=== PATIENT | female | born 1950 | race Caucasian/White ===

== ENCOUNTER 2020-08-19 15:46 | Observation (INO) | payer MEDICARE, OTHER ==
[~2020-08-19] VITALS: Ht 162.6 cm; Wt 95.3 kg
[2020-08-19] MEDS ORDERED: ACETAMINOPHEN 325 MG TAB PO ONE (16:15)
[2020-08-19] MEDS ORDERED: FAMOTIDINE 20 MG/2 ML VIAL IV ONE ×2 (16:15→17:14)
[2020-08-19] MEDS ORDERED: ENALAPRILAT IV INJ 1.25 MG/ML VIAL IV PRN (17:00)
[2020-08-19] MEDS ORDERED: ONDANSETRON HCL INJ 2MG/ML 2ML 2 MG/ML VIAL IV PRN ×2 (17:00)
[2020-08-19] MEDS ORDERED: DIPHENHYDRAMINE HCL INJ 50 MG/ML VIAL IV PRN (17:00)
[2020-08-19] MEDS ORDERED: FAMOTIDINE 20 MG TAB PO SCH (17:00)
[2020-08-19] MEDS ORDERED: SODIUM CHLORIDE FLUSH 10 ML SYR INJ PRN (17:00)
[2020-08-19] MEDS ORDERED: ACETAMINOPHEN 325 MG TAB PO PRN (17:00)
[2020-08-19] MEDS ORDERED: SODIUM CHLORIDE 0.9% 1000ML 1,000 ML IV STA (17:05)
[2020-08-19] MEDS ORDERED: ACETAMINOPHEN 325 MG TAB ONE (17:14)
[2020-08-19] MEDS ORDERED: SODIUM CHLORIDE 0.9% 1000ML 1,000 ML ONE (17:22)
[2020-08-19] MEDS ORDERED: SODIUM CHLORIDE 0.9% 50ML 50 ML ONE ×3 (17:23→23:05)
[2020-08-19] MEDS ORDERED: IOPAMIDOL 370 MG/ML 200 ML INFUS..BTL INJ ONE (17:24)
[2020-08-19] MEDS ORDERED: OMEGA 3 1,0001 EACH PO (18:32)
[2020-08-19] MEDS ORDERED: METFORMIN HCL500 MG PO (18:32)
[2020-08-19] MEDS ORDERED: FOLIC ACID0.4 MG PO (18:32)
[2020-08-19] MEDS ORDERED: NEURONTIN400 MG PO (18:32)
[2020-08-19] MEDS ORDERED: OMEPRAZOLE40 MG PO (18:32)
[2020-08-19] MEDS ORDERED: VITAMIN D3250 MC1 (18:32)
[2020-08-19] MEDS ORDERED: CITALOPRAM HBR20 MG PO (18:32)
[2020-08-19] MEDS ORDERED: METHOTREXATE2.5 MG PO (18:32)
[2020-08-19] MEDS ORDERED: MONTELUKAST SOD10 MG PO (18:32)
[2020-08-19] MEDS ORDERED: CALCIUM CARBON500 MG PO (18:32)
[2020-08-19] MEDS ORDERED: TRELEGY ELLIPT1 EAC1 (18:32)
[2020-08-19] MEDS ORDERED: METOPROLOL SUCC50 MG PO (18:32)
[2020-08-19] MEDS ORDERED: VITAMIN B-121000 MC1 PO (18:32)
[2020-08-19] MEDS ORDERED: MAGNESIUM OXID400 MG PO (18:32)
[2020-08-19] MEDS ORDERED: MYRBETRIQ25 MG (18:32)
[2020-08-19] MEDS ORDERED: FARXIGA10 MG (18:32)
[2020-08-19] MEDS ORDERED: ZINC30 MG (18:32)
[2020-08-19] MEDS ORDERED: ALLOPURINOL300 MG PO (18:32)
[2020-08-19] MEDS ORDERED: ALENDRONATE SOD70 MG (18:32)
[2020-08-19] MEDS ORDERED: LASIX20 MG PO (18:32)
[2020-08-19] MEDS ORDERED: ARIMIDEX1 MG PO (18:32)
[2020-08-19] MEDS ORDERED: BREZTRI AEROS10.7 GM (18:33)
[2020-08-19] MEDS ORDERED: HYDRALAZINE HCL 20 MG/ML VIAL IV PRN (19:45)
[2020-08-19] MEDS ORDERED: BENZONATATE 100 MG CAP PO PRN (19:45)
[2020-08-19] MEDS ORDERED: ZOLPIDEM TARTRATE 5 MG TAB PO PRN (21:00)
[2020-08-19] MEDS ORDERED: SIMVASTATIN 20 MG TAB PO SCH (21:00)
[2020-08-19] MEDS ORDERED: CEFTRIAXONE SOD 1 GM 50 ML IV ONE (22:15)
[2020-08-19 22:41] VITALS: BP 115/52
[2020-08-19] MEDS ORDERED: METHYLPREDNISOLONE SOD SUCC 125 MG/2ML VIAL IV SCH (23:00)
[2020-08-19] MEDS ORDERED: ALBUTEROL/IPRATROPIUM 3 ML NEB NEB SCH (23:00)
[2020-08-19] MEDS ORDERED: CEFTRIAXONE SOD 1 GM VIAL IV ONE (23:00)
[2020-08-19] MEDS ORDERED: CEFTRIAXONE SOD 1 GM VIAL ONE (23:04)
[2020-08-20] VITALS (8 sets, daily range): BP systolic 95–143; BP diastolic 48–75
[2020-08-20 06:14] LABS: BASOPHILS % 0.5 % (0.0-1.0); EOSINOPHILS % 0.7 % (0.0-6.0); HEMATOCRIT 40.5 % (34.2-44.1); HEMOGLOBIN 13.4 g/dL (12.0-16.0); LYMPHOCYTES # (AUTO) 0.9 (1.0-3.2); LYMPHOCYTES % 22.3 % (18.0-39.1); MEAN CORPUSCULAR HEMOGLOBIN 32.3 pg (28-32); MEAN CORPUSCULAR HGB CONC 33.1 g/dL (31-35); MEAN CORPUSCULAR VOLUME 97.6 fL (81-99); MONOCYTES # (AUTO) 0.1 (0.2-0.8); MONOCYTES % 1.7 % (4.4-11.3); NEUTROPHILS # (AUTO) 3.1 (2.1-6.9); NEUTROPHILS % 74.1 % (38.7-80.0); PLATELET COUNT 130 x10e3/uL (140-360); RED BLOOD COUNT 4.15 x10e6/uL (3.6-5.1); RED CELL DISTRIBUTION WIDTH 13.4 % (11.7-14.4)
[2020-08-20 06:37] LABS: ALBUMIN 3.7 g/dL (3.5-5.0); ALBUMIN/GLOBULIN RATIO 1.2 (0.8-2.0); ANION GAP 19.4 mmol/L (8-16); CREATININE, SERUM 1.18 mg/dL (0.57-1.11); POTASSIUM 4.4 mmol/L (3.5-5.1)
[2020-08-20 07:19] LABS: CHOL/HDL RATIO 4.7 (3.0-3.6)
[2020-08-20 07:36] LABS: PHOSPHORUS 4.6 MG/DL (2.3-4.7)
[2020-08-20 07:39] LABS: THYROID STIMULATING HORMONE 0.653 uIU/mL (0.350-4.940)
[2020-08-20] MEDS ORDERED: CYCLOBENZAPRINE HCL 10 MG TAB PO PRN (07:45)
[2020-08-20 08:29] LABS: CREATINE KINASE MB 0.8 ng/mL (0-5.0)
[2020-08-20] MEDS: SODIUM CHLORIDE 0.9% 1000ML 1,000 ML IV SCH ×3 (08:51→23:52)
[2020-08-20] MEDS ORDERED: NAPROXEN 250 MG TAB PO SCH (09:00)
[2020-08-20] MEDS ORDERED: ASPIRIN 325 MG TAB EC PO SCH (09:00)
[2020-08-20] MEDS: GABAPENTIN 100 MG CAP PO SCH ×2 (09:20→16:35)
[2020-08-20] MEDS: FUROSEMIDE 20 MG TAB PO SCH ×2 (09:20→16:35)
[2020-08-20] MEDS: ALLOPURINOL 300 MG TAB PO SCH (09:20)
[2020-08-20] MEDS: CYANOCOBALAMIN 1,000 MCG TAB PO SCH (09:20)
[2020-08-20] MEDS: OYST-CAL-D 500MG TABLET PO SCH (09:20)
[2020-08-20] MEDS: CITALOPRAM HYDROBROMIDE 20 MG TAB PO SCH (09:20)
[2020-08-20] MEDS ORDERED: DEXTROSE 50% SYRINGE 50 ML IV PRN (10:15)
[2020-08-20] MEDS: INSULIN REGULAR, HUMAN 100 UNIT/1 ML 3ML VIAL SQ SCH ×3 (13:02→21:00)
[2020-08-20] MEDS ORDERED: CLOPIDOGREL BISULFATE 75 MG TAB PO ONE (16:15)
[2020-08-20 16:40] LABS: CREATINE KINASE MB 0.7 ng/mL (0-5.0)
[2020-08-20] MEDS ORDERED: ENOXAPARIN SOD INJ 40 MG/0.4 ML SYR SC SCH (17:00)
[2020-08-20] MEDS: ACETAMINOPHEN 325 MG TAB PO PRN (23:25)
[2020-08-21] VITALS: BP 128/66
[2020-08-21 04:00] VITALS: BP 147/73
[2020-08-21 04:56] LABS: BASOPHILS % 0.7 % (0.0-1.0); EOSINOPHILS # (AUTO) 0.2 (0.0-0.4); EOSINOPHILS % 2.7 % (0.0-6.0); HEMATOCRIT 37.4 % (34.2-44.1); HEMOGLOBIN 12.8 g/dL (12.0-16.0); LYMPHOCYTES % 34.8 % (18.0-39.1); MEAN CORPUSCULAR HEMOGLOBIN 33.1 pg (28-32); MEAN CORPUSCULAR HGB CONC 34.2 g/dL (31-35); MEAN CORPUSCULAR VOLUME 96.6 fL (81-99); MONOCYTES # (AUTO) 0.4 (0.2-0.8); MONOCYTES % 7.5 % (4.4-11.3); NEUTROPHILS % 53.9 % (38.7-80.0); PLATELET COUNT 128 x10e3/uL (140-360); RED BLOOD COUNT 3.87 x10e6/uL (3.6-5.1); RED CELL DISTRIBUTION WIDTH 13.4 % (11.7-14.4)
[2020-08-21 05:17] LABS: ANION GAP 15.7 mmol/L (8-16); CALCIUM 8.8 mg/dL (8.4-10.2); CREATININE, SERUM 0.94 mg/dL (0.57-1.11); POTASSIUM 3.7 mmol/L (3.5-5.1)
[2020-08-21] MEDS ORDERED: PLAVIX75 MG PO (06:15)
[2020-08-21 08:00] VITALS: BP 137/61
[2020-08-21] MEDS: CYANOCOBALAMIN 1,000 MCG TAB PO SCH (08:22)
[2020-08-21] MEDS: FUROSEMIDE 20 MG TAB PO SCH (08:22)
[2020-08-21] MEDS: ALLOPURINOL 300 MG TAB PO SCH (08:22)
[2020-08-21] MEDS: GABAPENTIN 100 MG CAP PO SCH (08:22)
[2020-08-21] MEDS: CITALOPRAM HYDROBROMIDE 20 MG TAB PO SCH (08:22)
[2020-08-21] MEDS: OYST-CAL-D 500MG TABLET PO SCH (08:22)
[2020-08-21] MEDS: INSULIN REGULAR, HUMAN 100 UNIT/1 ML 3ML VIAL SQ SCH (08:29)
[2020-08-21 09:00] VITALS: BP 137/61
[2020-08-21] MEDS ORDERED: CLOPIDOGREL BISULFATE 75 MG TAB PO SCH (09:00)
[2020-08-21] MEDS: ACETAMINOPHEN 325 MG TAB PO PRN (09:02)
[2020-08-21] MEDS ORDERED: CYCLOBENZAPRINE5 MG PO (10:13)
== END 2020-08-21 11:30 | disposition home or self-care (01) ==
LOC: FSED 16:45 → ERHOLD 17:01 → UNDOADMOB 17:18 → ERHOLD 17:18 → IMCU 22:10 → ERHOLD 22:10
PROVIDERS: ADMIT Internal Medicine; ATTEND Internal Medicine
DX: M54.12 Radiculopathy, cervical region (principal); I10 Essential (primary) hypertension; Z20.822 Contact with and (suspected) exposure to COVID-19; J44.9 Chronic obstructive pulmonary disease, unspecified; E78.5 Hyperlipidemia, unspecified; E11.9 Type 2 diabetes mellitus without complications; E87.2 Acidosis; N17.9 Acute kidney failure, unspecified; Z85.3 Personal history of malignant neoplasm of breast
CPT/HCPCS: 36415 ×2; 71046; 71260; 72141; 80048 ×2; 80053; 80061; 81003; 82550; 82553 ×2; 82948 ×3; 83036; 83735; 83880 ×2; 84100; 84443; 84484 ×2; 85025 ×3; 85379; 93005; 93306; 94640; 96374; 99284; G0378 ×3; J0696; J1650; J1817; J2930; J7030 ×2; Q9967; U0002

== ENCOUNTER 2020-12-24 10:58 | Emergency (ER) | payer MEDICARE, OTHER ==
[~2020-12-24] VITALS: Ht 162.6 cm; Wt 92.3 kg
[~2020-12-24 10:58] MED LIST: ALENDRONATE SOD70 MG; ALLOPURINOL300 MG PO; ARIMIDEX1 MG PO; BREZTRI AEROS10.7 GM; CALCIUM CARBON500 MG PO; CITALOPRAM HBR20 MG PO; CYCLOBENZAPRINE5 MG PO; FARXIGA10 MG; FOLIC ACID0.4 MG PO; LASIX20 MG PO; MAGNESIUM OXID400 MG PO; METFORMIN HCL500 MG PO; METHOTREXATE2.5 MG PO; METOPROLOL SUCC50 MG PO; MONTELUKAST SOD10 MG PO; MYRBETRIQ25 MG; NEURONTIN400 MG PO; OMEGA 3 1,0001 EACH PO; OMEPRAZOLE40 MG PO; PLAVIX75 MG PO; TRELEGY ELLIPT1 EAC1; VITAMIN B-121000 MC1 PO; VITAMIN D3250 MC1; ZINC30 MG
[2020-12-24] MEDS ORDERED: LISINOPRIL10 MG PO (11:34)
[2020-12-24] MEDS ORDERED: BREZTRI AEROS10.7 GM (11:34)
[2020-12-24] MEDS ORDERED: NITROFURANTOIN100 MG PO (12:06)
== END 2020-12-24 12:15 | disposition home or self-care (01) ==
LOC: FSED 11:45
DX: E11.65 Type 2 diabetes mellitus with hyperglycemia (principal); N39.0 Urinary tract infection, site not specified; Z88.8 Allergy status to other drugs, medicaments and biological substances; Z79.84 Long term (current) use of oral hypoglycemic drugs
CPT/HCPCS: 36415; 81003; 82948; 99283

== ENCOUNTER 2021-02-10 13:41 | Emergency (ER) | payer MEDICARE, OTHER ==
[~2021-02-10] VITALS: Ht 162.6 cm; Wt 90.7 kg
[~2021-02-10 13:41] MED LIST changes: +LISINOPRIL10 MG PO; +NITROFURANTOIN100 MG PO
[2021-02-10 16:55] VITALS: BP 160/76
== END 2021-02-10 16:57 | disposition home or self-care (01) ==
LOC: FSED 16:01
DX: M77.52 Other enthesopathy of left foot and ankle (principal); M79.672 Pain in left foot; E11.9 Type 2 diabetes mellitus without complications; I10 Essential (primary) hypertension; J44.9 Chronic obstructive pulmonary disease, unspecified; I25.10 Atherosclerotic heart disease of native coronary artery without angina pectoris; Z85.3 Personal history of malignant neoplasm of breast; Z95.5 Presence of coronary angioplasty implant and graft
CPT/HCPCS: 99283

== ENCOUNTER 2021-03-08 13:35 | Emergency (ER) | payer MEDICARE, OTHER ==
[~2021-03-08] VITALS: Ht 162.6 cm; Wt 90.7 kg
[2021-03-08] MEDS ORDERED: MACROBID 100 M100 MG PO (15:06)
== END 2021-03-08 15:58 | disposition home or self-care (01) ==
LOC: FSED 13:57
DX: R30.0 Dysuria (principal); R10.30 Lower abdominal pain, unspecified; J44.9 Chronic obstructive pulmonary disease, unspecified; M54.50 Low back pain, unspecified; E11.9 Type 2 diabetes mellitus without complications; I10 Essential (primary) hypertension
CPT/HCPCS: 99283

== ENCOUNTER 2021-03-29 10:31 | Inpatient (IN) | payer MEDICARE, OTHER ==
[~2021-03-29] VITALS: Ht 162.6 cm; Wt 89.4 kg
[~2021-03-29 10:31] MED LIST changes: +MACROBID 100 M100 MG PO
[2021-03-29 14:49] VITALS: BP 126/48
[2021-03-29 15:21] VITALS: BP 126/48
[2021-03-29 15:43] VITALS: BP 126/48
[2021-03-29 20:00] VITALS: BP 125/48
[2021-03-29 21:05] VITALS: BP 125/48
[2021-03-29] MEDS: GABAPENTIN 400 MG CAP PO SCH (21:54)
[2021-03-30] VITALS: BP 140/71
[2021-03-30 04:00] VITALS: BP 136/66
[2021-03-30] MEDS: GABAPENTIN 400 MG CAP PO SCH ×3 (05:21→19:24)
[2021-03-30] MEDS: NON-FORMULARY MEDICATION (Budesonide/Glycopyr/Formoterol (Breztri Aerosphere Inhaler) 2 IN INH SCH ×2 (06:38→19:00)
[2021-03-30 07:28] VITALS: BP 139/70
[2021-03-30] MEDS ORDERED: LISINOPRIL 10 MG TAB PO SCH (09:00)
[2021-03-30] MEDS ORDERED: CLOPIDOGREL BISULFATE 75 MG TAB PO SCH (09:00)
[2021-03-30] MEDS: METOPROLOL SUCCINATE 50 MG TAB XL PO SCH (09:20)
[2021-03-30] MEDS: METFORMIN HCL 500 MG TAB PO SCH ×2 (09:20→16:45)
[2021-03-30] MEDS: ANASTROZOLE 1 MG TAB PO SCH (09:20)
[2021-03-30] MEDS: PANTOPRAZOLE SOD 40 MG TABEC PO SCH ×2 (09:20→16:45)
[2021-03-30] MEDS: ALLOPURINOL 300 MG TAB PO SCH (09:20)
[2021-03-30] MEDS: CITALOPRAM HYDROBROMIDE 20 MG TAB PO SCH (09:20)
[2021-03-30] MEDS: FUROSEMIDE 20 MG TAB PO SCH ×2 (09:20→16:45)
[2021-03-30] MEDS: FOLIC ACID 1 MG TAB PO SCH (09:20)
[2021-03-30 11:08] LABS: ANION GAP 13.9 mmol/L (8-16); CALCIUM 9.4 mg/dL (8.4-10.2); CREATININE, SERUM 1.16 mg/dL (0.57-1.11); POTASSIUM 4.9 mmol/L (3.5-5.1)
[2021-03-30 11:35] VITALS: BP 145/70
[2021-03-30] MEDS ORDERED: IOPAMIDOL 370 MG/ML 200 ML INFUS..BTL INJ ONE (11:42)
[2021-03-30] MEDS ORDERED: SODIUM CHLORIDE 0.9% 100 ML ONE (11:42)
[2021-03-30 13:55] LABS: BASOPHILS # (AUTO) 0.1 (0.0-0.1); EOSINOPHILS # (AUTO) 0.4 (0.0-0.4); EOSINOPHILS % 5.6 % (0.0-6.0); HEMATOCRIT 42.1 % (34.2-44.1); HEMOGLOBIN 13.7 g/dL (12.0-16.0); LYMPHOCYTES # (AUTO) 1.8 (1.0-3.2); LYMPHOCYTES % 28.9 % (18.0-39.1); MEAN CORPUSCULAR HEMOGLOBIN 31.6 pg (28-32); MEAN CORPUSCULAR HGB CONC 32.5 g/dL (31-35); MEAN CORPUSCULAR VOLUME 97.2 fL (81-99); MONOCYTES # (AUTO) 0.5 (0.2-0.8); MONOCYTES % 7.6 % (4.4-11.3); NEUTROPHILS # (AUTO) 3.6 (2.1-6.9); NEUTROPHILS % 56.4 % (38.7-80.0); PLATELET COUNT 170 x10e3/uL (140-360); RED BLOOD COUNT 4.33 x10e6/uL (3.6-5.1); RED CELL DISTRIBUTION WIDTH 12.9 % (11.7-14.4)
[2021-03-30 15:18] VITALS: BP 121/69
[2021-03-30] MEDS ORDERED: MONTELUKAST SODIUM 10 MG TAB PO SCH (19:30)
[2021-03-30] MEDS: ACETAMINOPHEN 325 MG TAB PO PRN (20:02)
[2021-03-30] MEDS ORDERED: ATORVASTATIN 40 MG TAB PO SCH (21:00)
[2021-03-30 21:10] VITALS: BP 130/71
[2021-03-31] VITALS: BP 139/67
[2021-03-31] MEDS: GABAPENTIN 400 MG CAP PO SCH ×2 (01:53→14:00)
[2021-03-31] MEDS: NON-FORMULARY MEDICATION (Budesonide/Glycopyr/Formoterol (Breztri Aerosphere Inhaler) 2 IN INH SCH (02:00)
[2021-03-31 04:00] VITALS: BP 140/68
[2021-03-31] MEDS ORDERED: ONDANSETRON HCL INJ 2MG/ML 2ML 2 MG/ML VIAL IV PRN (04:45)
[2021-03-31] MEDS: ACETAMINOPHEN 325 MG TAB PO PRN (06:37)
[2021-03-31] MEDS: PANTOPRAZOLE SOD 40 MG TABEC PO SCH ×2 (07:30→15:42)
[2021-03-31 08:00] VITALS: BP 138/68
[2021-03-31] MEDS: METFORMIN HCL 500 MG TAB PO SCH (08:00)
[2021-03-31] MEDS: METOPROLOL SUCCINATE 50 MG TAB XL PO SCH (09:00)
[2021-03-31] MEDS: FOLIC ACID 1 MG TAB PO SCH (09:00)
[2021-03-31] MEDS: ANASTROZOLE 1 MG TAB PO SCH (09:00)
[2021-03-31] MEDS: ALLOPURINOL 300 MG TAB PO SCH (09:00)
[2021-03-31] MEDS: FUROSEMIDE 20 MG TAB PO SCH (09:00)
[2021-03-31] MEDS: CITALOPRAM HYDROBROMIDE 20 MG TAB PO SCH (09:00)
[2021-03-31 12:00] VITALS: BP 140/68
[2021-03-31 16:00] VITALS: BP 145/64
== END 2021-03-31 16:46 | disposition home or self-care (01) | DRG 68 ==
LOC: FSED 10:37 → ERHOLD 12:12 → MED/SURG2 14:25
PROVIDERS: ADMIT Family Medicine; ATTEND Family Medicine
DX: I65.22 Occlusion and stenosis of left carotid artery (principal); I10 Essential (primary) hypertension; E11.9 Type 2 diabetes mellitus without complications; I25.10 Atherosclerotic heart disease of native coronary artery without angina pectoris; E78.5 Hyperlipidemia, unspecified; J44.9 Chronic obstructive pulmonary disease, unspecified; M10.9 Gout, unspecified; I12.9 Hypertensive chronic kidney disease with stage 1 through stage 4 chronic kidney disease, or unspecified chronic kidney disease; N18.30 Chronic kidney disease, stage 3 unspecified; Z20.822 Contact with and (suspected) exposure to COVID-19; M06.9 Rheumatoid arthritis, unspecified; Z87.891 Personal history of nicotine dependence; Z85.3 Personal history of malignant neoplasm of breast
CPT/HCPCS: 36415; 70450; 70496; 70498; 70551; 80048; 82948; 85025; 93005; 93306; 93880; 99284; J2405; J7050; Q9967; U0002

== ENCOUNTER 2021-04-04 12:17 | Inpatient (IN) | payer MEDICARE, OTHER ==
[2021-04-04] VITALS (8 sets, daily range): BP systolic 122–147; BP diastolic 44–52
[~2021-04-04] VITALS: Ht 162.6 cm; Wt 93.9 kg
[2021-04-04] MEDS ORDERED: LIDOCAINE HCL 1% 2 ML AMP ONE (12:21)
[2021-04-04] MEDS ORDERED: PROTAMINE SULFATE 10 MG/ML 5 ML VIAL ONE (12:21)
[2021-04-04] MEDS ORDERED: HEPARIN SOD (PORCINE) 1000 UNIT/ML 30ML ONE (12:22)
[2021-04-04] MEDS ORDERED: MUPIROCIN 2% OINT 22 GM TUBE ONE (12:22)
[2021-04-04] MEDS ORDERED: SODIUM CHLORIDE 0.9% 500ML 500 ML ONE (12:22)
[2021-04-04] MEDS ORDERED: THROMBIN FOR SOLN 5,000 UNIT VIAL ONE (12:22)
[2021-04-04] MEDS ORDERED: HEPARIN SOD/SOD CHLORIDE 1,000 ML ONE (12:23)
[2021-04-04] MEDS ORDERED: PROPOFOL IV EMULSION 10 MG/ML 20 ML VIAL ONE (12:47)
[2021-04-04] MEDS ORDERED: ESMOLOL HCL 100MG/10ML 10 MG/ML VIAL ONE (12:47)
[2021-04-04] MEDS ORDERED: EPHEDRINE SULFATE INJ 50 MG/ML VIAL ONE (12:47)
[2021-04-04] MEDS ORDERED: ONDANSETRON HCL INJ 2MG/ML 2ML 2 MG/ML VIAL ONE (12:47)
[2021-04-04] MEDS ORDERED: POVIDONE IODINE 0.05% 0.05 % ML PO ONE (12:47)
[2021-04-04] MEDS ORDERED: ROCURONIUM BROMIDE 10 MG/ML 5ML VIAL IV ONE (12:47)
[2021-04-04] MEDS ORDERED: DEXAMETHASONE SOD PHOS INJ 4 MG/ML SDV ONE (12:47)
[2021-04-04] MEDS ORDERED: SEVOFLURANE INHAL SOLN 250 ML PEN BTL ONE (12:47)
[2021-04-04] MEDS ORDERED: PHENYLEPHRINE HCL 1% 10 MG/ML VIAL ONE (12:47)
[2021-04-04] MEDS ORDERED: LIDOCAINE HCL 2% LOCAL INJ 5 ML SDV VIAL INJ ONE (12:47)
[2021-04-04 13:55] LABS: INR 0.95; PROTHROMBIN TIME 13.4 seconds (11.9-14.5)
[2021-04-04 13:56] LABS: PARTIAL THROMBOPLASTIN TIME 28.7 seconds (23.8-35.5)
[2021-04-04] MEDS ORDERED: SODIUM CHLORIDE 0.9% 50ML 50 ML ONE ×2 (16:20→18:06)
[2021-04-04] MEDS ORDERED: LABETALOL HCL 20 ML ONE (17:16)
[2021-04-04 17:48] LABS: BASOPHILS % 0.5 % (0.0-1.0); EOSINOPHILS # (AUTO) 0.1 (0.0-0.4); EOSINOPHILS % 1.7 % (0.0-6.0); HEMOGLOBIN 12.5 g/dL (12.0-16.0); LYMPHOCYTES # (AUTO) 1.4 (1.0-3.2); LYMPHOCYTES % 16.9 % (18.0-39.1); MEAN CORPUSCULAR HEMOGLOBIN 30.9 pg (28-32); MEAN CORPUSCULAR HGB CONC 32.1 g/dL (31-35); MEAN CORPUSCULAR VOLUME 96.5 fL (81-99); MONOCYTES # (AUTO) 0.2 (0.2-0.8); MONOCYTES % 2.2 % (4.4-11.3); NEUTROPHILS # (AUTO) 6.4 (2.1-6.9); NEUTROPHILS % 77.7 % (38.7-80.0); PLATELET COUNT 149 x10e3/uL (140-360); RED BLOOD COUNT 4.04 x10e6/uL (3.6-5.1); RED CELL DISTRIBUTION WIDTH 13.2 % (11.7-14.4)
[2021-04-04 18:02] LABS: ANION GAP 15.2 mmol/L (8-16); CALCIUM 9.2 mg/dL (8.4-10.2); CREATININE, SERUM 1.06 mg/dL (0.57-1.11); POTASSIUM 4.2 mmol/L (3.5-5.1)
[2021-04-04] MEDS ORDERED: Morphine 2mg Syringe 2 MG/ML SYR IV PRN (19:15)
[2021-04-04] MEDS ORDERED: LABETALOL HCL 5 MG/ML 20ML VIAL IV PRN (19:15)
[2021-04-04] MEDS ORDERED: Morphine 2mg Syringe 2 MG/ML SYR ONE (19:37)
[2021-04-04] MEDS ORDERED: Morphine 4mg Syringe 4 MG/ML INJ IV PRN (20:30)
[2021-04-04] MEDS ORDERED: CYCLOBENZAPRINE HCL 10 MG TAB PO PRN (21:00)
[2021-04-04] MEDS: SODIUM CHLORIDE 0.9% 1000ML 1,000 ML IV SCH (22:01)
[2021-04-04] MEDS: INSULIN REGULAR, HUMAN 100 UNIT/1 ML SQ SCH (23:56)
[2021-04-05] VITALS (19 sets, daily range): BP systolic 25–155; BP diastolic 39–77
[2021-04-05] MEDS: SODIUM CHLORIDE 0.9% 1000ML 1,000 ML IV SCH (05:15)
[2021-04-05 05:37] LABS: BASOPHILS % 0.5 % (0.0-1.0); EOSINOPHILS % 0.3 % (0.0-6.0); HEMATOCRIT 34.7 % (34.2-44.1); HEMOGLOBIN 11.4 g/dL (12.0-16.0); LYMPHOCYTES # (AUTO) 1.1 (1.0-3.2); LYMPHOCYTES % 16.3 % (18.0-39.1); MEAN CORPUSCULAR HEMOGLOBIN 31.3 pg (28-32); MEAN CORPUSCULAR HGB CONC 32.9 g/dL (31-35); MEAN CORPUSCULAR VOLUME 95.3 fL (81-99); MONOCYTES # (AUTO) 0.3 (0.2-0.8); MONOCYTES % 4.7 % (4.4-11.3); NEUTROPHILS # (AUTO) 5.1 (2.1-6.9); NEUTROPHILS % 77.7 % (38.7-80.0); PLATELET COUNT 139 x10e3/uL (140-360); RED BLOOD COUNT 3.64 x10e6/uL (3.6-5.1); RED CELL DISTRIBUTION WIDTH 13.2 % (11.7-14.4)
[2021-04-05] MEDS: INSULIN REGULAR, HUMAN 100 UNIT/1 ML SQ SCH ×3 (05:45→16:56)
[2021-04-05 05:55] LABS: ANION GAP 12.3 mmol/L (8-16); CALCIUM 8.6 mg/dL (8.4-10.2); CREATININE, SERUM 0.95 mg/dL (0.57-1.11); POTASSIUM 4.3 mmol/L (3.5-5.1)
[2021-04-05] MEDS: CLOPIDOGREL BISULFATE 75 MG TAB PO SCH (08:37)
[2021-04-05] MEDS: METFORMIN HCL 500 MG TAB PO SCH ×2 (08:37→17:04)
[2021-04-05] MEDS: HYDROCODONE/APAP 5MG-325MG TAB PO PRN ×4 (08:37→21:16)
[2021-04-05] MEDS: OMEGA 3 POLYUNSAT FATTY ACIDS 1000 MG SOFTGEL PO SCH (08:37)
[2021-04-05] MEDS: METOPROLOL SUCCINATE 50 MG TAB XL PO SCH (08:37)
[2021-04-05] MEDS: FOLIC ACID 1 MG TAB PO SCH (08:38)
[2021-04-05] MEDS: MONTELUKAST SODIUM 10 MG TAB PO SCH (08:38)
[2021-04-05] MEDS: OYST-CAL-D 500MG TABLET PO SCH (08:38)
[2021-04-05] MEDS: LISINOPRIL 10 MG TAB PO SCH (08:38)
[2021-04-05] MEDS: PANTOPRAZOLE SOD 40 MG TABEC PO SCH ×2 (08:38→17:04)
[2021-04-05] MEDS: CYANOCOBALAMIN 1,000 MCG TAB PO SCH (08:39)
[2021-04-05] MEDS: NON-FORMULARY MEDICATION (Budesonide/Glycopyr/Formoterol (Breztri Aerosphere Inhaler) 2 IN INH SCH ×2 (09:00→19:00)
[2021-04-05] MEDS ORDERED: CITALOPRAM HYDROBROMIDE 20 MG TAB PO SCH (09:00)
[2021-04-05] MEDS: ALLOPURINOL 300 MG TAB PO SCH (09:45)
[2021-04-05] MEDS: ANASTROZOLE 1 MG TAB PO SCH (09:45)
[2021-04-05] MEDS ORDERED: MIDAZOLAM HCL 2 MG/2 ML VIAL ONE (14:22)
[2021-04-05] MEDS ORDERED: FENTANYL CITRATE/PF 100MCG/2 ML INJ ONE (14:22)
[2021-04-05] MEDS: ENOXAPARIN SOD INJ 40 MG/0.4 ML SYR SC SCH (21:00)
[2021-04-06 05:11] VITALS: BP 133/64
[2021-04-06 05:25] LABS: BASOPHILS # (AUTO) 0.1 (0.0-0.1); BASOPHILS % 0.8 % (0.0-1.0); EOSINOPHILS # (AUTO) 0.4 (0.0-0.4); EOSINOPHILS % 6.2 % (0.0-6.0); HEMATOCRIT 35.7 % (34.2-44.1); HEMOGLOBIN 11.5 g/dL (12.0-16.0); LYMPHOCYTES # (AUTO) 1.9 (1.0-3.2); LYMPHOCYTES % 32.5 % (18.0-39.1); MEAN CORPUSCULAR HEMOGLOBIN 31.4 pg (28-32); MEAN CORPUSCULAR HGB CONC 32.2 g/dL (31-35); MEAN CORPUSCULAR VOLUME 97.5 fL (81-99); MONOCYTES # (AUTO) 0.4 (0.2-0.8); MONOCYTES % 7.1 % (4.4-11.3); NEUTROPHILS # (AUTO) 3.2 (2.1-6.9); NEUTROPHILS % 53.1 % (38.7-80.0); PLATELET COUNT 136 x10e3/uL (140-360); RED BLOOD COUNT 3.66 x10e6/uL (3.6-5.1); RED CELL DISTRIBUTION WIDTH 13.2 % (11.7-14.4)
[2021-04-06 05:46] LABS: ALBUMIN 3.2 g/dL (3.5-5.0); ALBUMIN/GLOBULIN RATIO 1.2 (0.8-2.0); ANION GAP 12.2 mmol/L (8-16); CALCIUM 8.6 mg/dL (8.4-10.2); CREATININE, SERUM 1.09 mg/dL (0.57-1.11); POTASSIUM 4.2 mmol/L (3.5-5.1)
[2021-04-06] MEDS: INSULIN REGULAR, HUMAN 100 UNIT/1 ML SQ SCH ×4 (06:00→17:56)
[2021-04-06] MEDS: NON-FORMULARY MEDICATION (Budesonide/Glycopyr/Formoterol (Breztri Aerosphere Inhaler) 2 IN INH SCH ×2 (07:00→18:12)
[2021-04-06 08:08] VITALS: BP 163/62
[2021-04-06] MEDS: HYDROCODONE/APAP 5MG-325MG TAB PO PRN ×2 (08:37→20:00)
[2021-04-06 08:53] VITALS: BP 163/62
[2021-04-06] MEDS: OMEGA 3 POLYUNSAT FATTY ACIDS 1000 MG SOFTGEL PO SCH (09:11)
[2021-04-06] MEDS: METFORMIN HCL 500 MG TAB PO SCH ×2 (09:11→17:19)
[2021-04-06] MEDS: FOLIC ACID 1 MG TAB PO SCH (09:11)
[2021-04-06] MEDS: ANASTROZOLE 1 MG TAB PO SCH (09:11)
[2021-04-06] MEDS: CLOPIDOGREL BISULFATE 75 MG TAB PO SCH (09:12)
[2021-04-06] MEDS: OYST-CAL-D 500MG TABLET PO SCH (09:12)
[2021-04-06] MEDS: PANTOPRAZOLE SOD 40 MG TABEC PO SCH ×2 (09:13→17:19)
[2021-04-06] MEDS: MONTELUKAST SODIUM 10 MG TAB PO SCH (09:14)
[2021-04-06] MEDS: LISINOPRIL 10 MG TAB PO SCH (09:15)
[2021-04-06] MEDS: METOPROLOL SUCCINATE 50 MG TAB XL PO SCH (09:27)
[2021-04-06] MEDS: CYANOCOBALAMIN 1,000 MCG TAB PO SCH (09:27)
[2021-04-06] MEDS: ALLOPURINOL 300 MG TAB PO SCH (09:27)
[2021-04-06 11:25] VITALS: BP 148/81
[2021-04-06 15:46] VITALS: BP 159/60
[2021-04-06] MEDS: ENOXAPARIN SOD INJ 40 MG/0.4 ML SYR SC SCH (17:19)
[2021-04-06] MEDS ORDERED: ALBUTEROL SULF 0.083% NEB SOLN 3 ML NEB NEB PRN (18:15)
[2021-04-06 20:00] VITALS: BP 157/73
[2021-04-06] MEDS: ATORVASTATIN 40 MG TAB PO SCH (21:01)
[2021-04-07] VITALS: BP 163/67
[2021-04-07] MEDS: HYDROCODONE/APAP 5MG-325MG TAB PO PRN ×4 (00:40→21:21)
[2021-04-07] MEDS: INSULIN REGULAR, HUMAN 100 UNIT/1 ML SQ SCH ×5 (06:00→23:18)
[2021-04-07] MEDS: NON-FORMULARY MEDICATION (Budesonide/Glycopyr/Formoterol (Breztri Aerosphere Inhaler) 2 IN INH SCH ×2 (07:00→19:00)
[2021-04-07 07:44] VITALS: BP 153/74
[2021-04-07 08:01] VITALS: BP 153/74
[2021-04-07] MEDS: ALLOPURINOL 300 MG TAB PO SCH (08:12)
[2021-04-07] MEDS: PANTOPRAZOLE SOD 40 MG TABEC PO SCH ×2 (08:12→16:48)
[2021-04-07] MEDS: OMEGA 3 POLYUNSAT FATTY ACIDS 1000 MG SOFTGEL PO SCH (08:12)
[2021-04-07] MEDS: ANASTROZOLE 1 MG TAB PO SCH (08:13)
[2021-04-07] MEDS: OYST-CAL-D 500MG TABLET PO SCH (08:13)
[2021-04-07] MEDS: MONTELUKAST SODIUM 10 MG TAB PO SCH (08:13)
[2021-04-07] MEDS: METFORMIN HCL 500 MG TAB PO SCH ×2 (08:13→16:48)
[2021-04-07] MEDS: FOLIC ACID 1 MG TAB PO SCH (08:14)
[2021-04-07] MEDS: METOPROLOL SUCCINATE 50 MG TAB XL PO SCH (08:14)
[2021-04-07] MEDS: CYANOCOBALAMIN 1,000 MCG TAB PO SCH (08:14)
[2021-04-07] MEDS: LISINOPRIL 10 MG TAB PO SCH (08:15)
[2021-04-07] MEDS: CLOPIDOGREL BISULFATE 75 MG TAB PO SCH (08:15)
[2021-04-07] MEDS ORDERED: ASPIRIN 81 MG ENTERIC COATED PO SCH (09:00)
[2021-04-07 11:11] VITALS: BP 166/68
[2021-04-07 15:37] VITALS: BP 149/68
[2021-04-07] MEDS: ENOXAPARIN SOD INJ 40 MG/0.4 ML SYR SC SCH (16:48)
[2021-04-07] MEDS ORDERED: ALBUTEROL/IPRATROPIUM 3 ML NEB NEB PRN (17:30)
[2021-04-07 20:00] VITALS: BP 139/80
[2021-04-07] MEDS: ATORVASTATIN 40 MG TAB PO SCH (21:12)
[2021-04-08] VITALS: BP 127/71
[2021-04-08 04:00] VITALS: BP 138/68
[2021-04-08] MEDS: INSULIN REGULAR, HUMAN 100 UNIT/1 ML SQ SCH ×2 (06:00→11:48)
[2021-04-08 06:06] VITALS: BP 127/71
[2021-04-08] MEDS: NON-FORMULARY MEDICATION (Budesonide/Glycopyr/Formoterol (Breztri Aerosphere Inhaler) 2 IN INH SCH (07:00)
[2021-04-08] MEDS: HYDROCODONE/APAP 5MG-325MG TAB PO PRN ×2 (07:26→14:06)
[2021-04-08 07:52] VITALS: BP 136/62
[2021-04-08 08:58] VITALS: BP 136/62
[2021-04-08] MEDS: FOLIC ACID 1 MG TAB PO SCH (09:00)
[2021-04-08] MEDS: ANASTROZOLE 1 MG TAB PO SCH (09:00)
[2021-04-08] MEDS: CLOPIDOGREL BISULFATE 75 MG TAB PO SCH (09:00)
[2021-04-08] MEDS: METFORMIN HCL 500 MG TAB PO SCH (09:00)
[2021-04-08] MEDS: MONTELUKAST SODIUM 10 MG TAB PO SCH (09:00)
[2021-04-08] MEDS: LISINOPRIL 10 MG TAB PO SCH (09:00)
[2021-04-08] MEDS: METOPROLOL SUCCINATE 50 MG TAB XL PO SCH (09:00)
[2021-04-08] MEDS: CYANOCOBALAMIN 1,000 MCG TAB PO SCH (09:00)
[2021-04-08] MEDS: OMEGA 3 POLYUNSAT FATTY ACIDS 1000 MG SOFTGEL PO SCH (09:00)
[2021-04-08] MEDS: PANTOPRAZOLE SOD 40 MG TABEC PO SCH (09:00)
[2021-04-08] MEDS: OYST-CAL-D 500MG TABLET PO SCH (09:00)
[2021-04-08] MEDS: ALLOPURINOL 300 MG TAB PO SCH (09:00)
[2021-04-08 11:46] VITALS: BP 131/72
[2021-04-08] MEDS ORDERED: TYLENOL #3 PO (13:46)
[2021-04-08] MEDS ORDERED: BACTROBAN OINTMENT TOP (13:50)
[2021-04-08] MEDS ORDERED: METFORMIN HCL 500 MG TAB PO SCH (17:00)
[2021-04-08] MEDS ORDERED: AZITHROMYCIN 250 MG TAB PO SCH (18:00)
== END 2021-04-08 15:02 | disposition home or self-care (01) | DRG 38 ==
LOC: OR 12:17 → ICU 19:00 → MED/SURG 04-05 16:27
PROVIDERS: ADMIT Thoracic Surgery (Cardiothoracic Vascular Surgery); ATTEND Thoracic Surgery (Cardiothoracic Vascular Surgery)
PROC: 03CL0ZZ Extirpation of Matter from Left Internal Carotid Artery, Open Approach (ICD-10-PCS; 2021-04-04)
PROC: 03UJ0JZ Supplement Left Common Carotid Artery with Synthetic Substitute, Open Approach (ICD-10-PCS; 2021-04-04)
PROC: 03UL0JZ Supplement Left Internal Carotid Artery with Synthetic Substitute, Open Approach (ICD-10-PCS; 2021-04-04)
PROC: 03CJ0ZZ Extirpation of Matter from Left Common Carotid Artery, Open Approach (ICD-10-PCS; principal; 2021-04-04 13:30)
DX: I65.21 Occlusion and stenosis of right carotid artery (principal); J44.1 Chronic obstructive pulmonary disease with (acute) exacerbation; I25.10 Atherosclerotic heart disease of native coronary artery without angina pectoris; Z95.5 Presence of coronary angioplasty implant and graft; E11.51 Type 2 diabetes mellitus with diabetic peripheral angiopathy without gangrene; Z86.73 Personal history of transient ischemic attack (TIA), and cerebral infarction without residual deficits; M06.9 Rheumatoid arthritis, unspecified; F17.210 Nicotine dependence, cigarettes, uncomplicated; D69.6 Thrombocytopenia, unspecified; R33.9 Retention of urine, unspecified; Z85.3 Personal history of malignant neoplasm of breast; E78.5 Hyperlipidemia, unspecified; E66.9 Obesity, unspecified; Z68.35 Body mass index [BMI] 35.0-35.9, adult
CPT/HCPCS: 36415; 80048; 80053; 82948; 85025; 85610; 85730; 86850; 86900; 86920; 88304; 88305; 94799; 99251; C1768; J0456; J0690; J1100; J1644; J1650; J2001; J2250; J2270; J2370; J2405; J2720; J3010; J7030; J7040; J7050

== ENCOUNTER 2022-05-24 08:05 | Emergency (ER) | payer MEDICARE, OTHER ==
[~2022-05-24] VITALS: Ht 162.6 cm; Wt 93.9 kg
[~2022-05-24 08:05] MED LIST changes: +BACTROBAN OINTMENT TOP; +TYLENOL #3 PO
[2022-05-24] MEDS ORDERED: KETOROLAC TROMETHAMINE 30 MG/ML VIAL IV STA (08:32)
[2022-05-24 09:00] LABS: BASOPHILS % 0.4 % (0.0-1.0); EOSINOPHILS # (AUTO) 0.2 (0.0-0.4); EOSINOPHILS % 1.8 % (0.0-6.0); HEMATOCRIT 43.1 % (34.2-44.1); HEMOGLOBIN 13.4 g/dL (12.0-16.0); LYMPHOCYTES # (AUTO) 1.7 (1.0-3.2); LYMPHOCYTES % 16.6 % (18.0-39.1); MEAN CORPUSCULAR HEMOGLOBIN 31.4 pg (28-32); MEAN CORPUSCULAR HGB CONC 31.1 g/dL (31-35); MEAN CORPUSCULAR VOLUME 100.9 fL (81-99); MONOCYTES # (AUTO) 0.6 (0.2-0.8); MONOCYTES % 5.9 % (4.4-11.3); NEUTROPHILS # (AUTO) 7.5 (2.1-6.9); PLATELET COUNT 155 x10e3/uL (140-360); RED BLOOD COUNT 4.27 x10e6/uL (3.6-5.1); RED CELL DISTRIBUTION WIDTH 12.8 % (11.7-14.4)
[2022-05-24 09:50] LABS: ALBUMIN 3.8 g/dL (3.5-5.0); ALBUMIN/GLOBULIN RATIO 1.1 (0.8-2.0); ANION GAP 15.4 mmol/L (8-16); CALCIUM 9.7 mg/dL (8.4-10.2); CREATININE, SERUM 1.09 mg/dL (0.57-1.11); POTASSIUM 4.4 mmol/L (3.5-5.1)
[2022-05-24] MEDS ORDERED: NAPROXEN250 MG PO (10:10)
[2022-05-24 10:25] VITALS: BP 147/50
== END 2022-05-24 10:39 | disposition home or self-care (01) ==
LOC: ER 08:09
DX: M25.512 Pain in left shoulder (principal); I10 Essential (primary) hypertension; E11.65 Type 2 diabetes mellitus with hyperglycemia; J44.9 Chronic obstructive pulmonary disease, unspecified; I25.10 Atherosclerotic heart disease of native coronary artery without angina pectoris; E78.5 Hyperlipidemia, unspecified; K21.9 Gastro-esophageal reflux disease without esophagitis; M54.9 Dorsalgia, unspecified; G89.29 Other chronic pain; Z85.3 Personal history of malignant neoplasm of breast; Z95.5 Presence of coronary angioplasty implant and graft
CPT/HCPCS: 36415; 71045; 73030; 80053; 84484; 85025; 93005; 99284; J1885

== ENCOUNTER 2022-07-05 16:10 | Inpatient (IN) | payer MEDICARE, OTHER ==
[~2022-07-05] VITALS: Ht 162.6 cm; Wt 93.9 kg
[~2022-07-05 16:10] MED LIST changes: +NAPROXEN250 MG PO; -VITAMIN D3250 MC1; +VITAMIN D3250 MC1 PO; -ZINC30 MG; +ZINC30 MG PO
[2022-07-05] MEDS ORDERED: ONDANSETRON HCL INJ 2MG/ML 2ML 2 MG/ML VIAL IV STA (16:23)
[2022-07-05] MEDS ORDERED: SODIUM CHLORIDE 0.9% 1000ML 1,000 ML IV STA (16:23)
[2022-07-05 16:34] LABS: BASOPHILS % 0.7 % (0.0-1.0); EOSINOPHILS # (AUTO) 0.2 (0.0-0.4); EOSINOPHILS % 2.8 % (0.0-6.0); HEMATOCRIT 38.5 % (34.2-44.1); HEMOGLOBIN 12.4 g/dL (12.0-16.0); LYMPHOCYTES # (AUTO) 2.1 (1.0-3.2); LYMPHOCYTES % 34.4 % (18.0-39.1); MEAN CORPUSCULAR HEMOGLOBIN 31.2 pg (28-32); MEAN CORPUSCULAR HGB CONC 32.2 g/dL (31-35); MEAN CORPUSCULAR VOLUME 96.7 fL (81-99); MONOCYTES # (AUTO) 0.5 (0.2-0.8); MONOCYTES % 7.7 % (4.4-11.3); NEUTROPHILS # (AUTO) 3.3 (2.1-6.9); NEUTROPHILS % 54.2 % (38.7-80.0); PLATELET COUNT 166 x10e3/uL (140-360); RED BLOOD COUNT 3.98 x10e6/uL (3.6-5.1); RED CELL DISTRIBUTION WIDTH 14.7 % (11.7-14.4)
[2022-07-05 16:54] LABS: ALANINE AMINOTRANSFERASE 24 IU/L (0-55); ALBUMIN 3.8 g/dL (3.5-5.0); ALKALINE PHOSPHATASE 96 IU/L (40-150); ANION GAP 16.6 mmol/L (8-16); BLOOD UREA NITROGEN 45 mg/dL (7-26); BUN/CREATININE RATIO 24 (6-25); CALCIUM 9.9 mg/dL (8.4-10.2); CARBON DIOXIDE 21 mmol/L (22-29); CHLORIDE 107 mmol/L (98-107); CREATINE KINASE 46 IU/L (29-168); CREATININE, SERUM 1.91 mg/dL (0.57-1.11); GLUCOSE 208 mg/dL (74-118); LIPASE 64 U/L (8-78); POTASSIUM 4.6 mmol/L (3.5-5.1); SODIUM 140 mmol/L (136-145)
[2022-07-05 23:23] VITALS: BP 139/55
[2022-07-05 23:30] VITALS: BP 139/55
[2022-07-05] MEDS: SODIUM CHLORIDE 0.9% 1000ML 1,000 ML IV SCH (23:45)
[2022-07-05] MEDS: ONDANSETRON HCL INJ 2MG/ML 2ML 2 MG/ML VIAL IV PRN (23:54)
[2022-07-06] VITALS (7 sets, daily range): BP systolic 95–143; BP diastolic 51–86
[2022-07-06] MEDS ORDERED: ACETAMINOPHEN 325 MG TAB PO PRN (02:00)
[2022-07-06] MEDS: SODIUM CHLORIDE 0.9% 1000ML 1,000 ML IV SCH ×3 (02:15→15:13)
[2022-07-06] MEDS ORDERED: ACETAMINOPHEN 325 MG TAB ONE (02:16)
[2022-07-06] MEDS: ONDANSETRON HCL INJ 2MG/ML 2ML 2 MG/ML VIAL IV PRN ×3 (05:42→16:09)
[2022-07-06 06:06] LABS: BASOPHILS % 0.8 % (0.0-1.0); EOSINOPHILS # (AUTO) 0.2 (0.0-0.4); EOSINOPHILS % 3.4 % (0.0-6.0); HEMATOCRIT 37.9 % (34.2-44.1); HEMOGLOBIN 11.9 g/dL (12.0-16.0); LYMPHOCYTES # (AUTO) 1.9 (1.0-3.2); LYMPHOCYTES % 36.6 % (18.0-39.1); MEAN CORPUSCULAR HEMOGLOBIN 31.3 pg (28-32); MEAN CORPUSCULAR HGB CONC 31.4 g/dL (31-35); MEAN CORPUSCULAR VOLUME 99.7 fL (81-99); MONOCYTES # (AUTO) 0.4 (0.2-0.8); MONOCYTES % 7.2 % (4.4-11.3); NEUTROPHILS # (AUTO) 2.8 (2.1-6.9); NEUTROPHILS % 51.8 % (38.7-80.0); PLATELET COUNT 138 x10e3/uL (140-360); RED CELL DISTRIBUTION WIDTH 14.6 % (11.7-14.4)
[2022-07-06 06:34] LABS: ALBUMIN 3.3 g/dL (3.5-5.0); ANION GAP 12.6 mmol/L (8-16); CALCIUM 9.5 mg/dL (8.4-10.2); CREATININE, SERUM 1.46 mg/dL (0.57-1.11); POTASSIUM 4.6 mmol/L (3.5-5.1)
[2022-07-06 06:58] LABS: CREATINE KINASE 46 IU/L (29-168)
[2022-07-06] MEDS: CLOPIDOGREL BISULFATE 75 MG TAB PO SCH (08:46)
[2022-07-06] MEDS: ALLOPURINOL 300 MG TAB PO SCH (08:46)
[2022-07-06] MEDS: MONTELUKAST SODIUM 10 MG TAB PO SCH (08:46)
[2022-07-06] MEDS: PANTOPRAZOLE SOD 40 MG TABEC PO SCH ×2 (08:47→15:14)
[2022-07-06] MEDS: LISINOPRIL 20 MG TAB PO SCH (08:47)
[2022-07-06] MEDS: CITALOPRAM HYDROBROMIDE 20 MG TAB PO SCH (08:47)
[2022-07-06] MEDS: METOPROLOL SUCCINATE 50 MG TAB XL PO SCH (08:47)
[2022-07-06] MEDS: ANASTROZOLE 1 MG TAB PO SCH (08:47)
[2022-07-06] MEDS: NON-FORMULARY MEDICATION (Budesonide/Glycopyr/Formoterol (Breztri Aerosphere Inhaler) 2 IN INH SCH ×2 (09:00→19:00)
[2022-07-06] MEDS: NON-FORMULARY MEDICATION (Folic Acid* 0.4 MG) PO SCH (09:00)
[2022-07-06] MEDS: OYST-CAL-D 500MG TABLET PO SCH (09:30)
[2022-07-06 09:34] LABS: CLARITY,URINE CLOUDY (CLEAR); COLOR,URINE YELLOW (YELLOW); KETONES,URINE NEGATIVE (NEGATIVE); LEUKOCYTE ESTERASE ,URINE NEGATIVE (NEGATIVE); NITRITE,URINE NEGATIVE (NEGATIVE); PROTEIN,URINE DIPSTICK NEGATIVE (NEGATIVE); URINE UROBILINOGEN 0.2 mg/dL (0.2 - 1)
[2022-07-06 09:35] LABS: BACTERIA,URINE MANY /HPF; EPITHELIAL CELLS,URINE FEW /LPF; RBC,URINE 0-5 /HPF (0-5)
[2022-07-06] MEDS ORDERED: DEXTROSE 50% SYRINGE 50 ML IV PRN (09:45)
[2022-07-06] MEDS: ACETAMINOPHEN 325 MG TAB PO PRN ×2 (11:17→20:36)
[2022-07-06] MEDS: INSULIN LISPRO 100 UNIT/1 ML 3ML VIAL SQ SCH ×3 (11:52→20:30)
[2022-07-06 15:35] LABS: CREATINE KINASE 51 IU/L (29-168)
[2022-07-06] MEDS: CEFTRIAXONE 2 GM in SODIUM CHLORIDE 0.9% 100 ML IV SCH (16:13)
[2022-07-06] MEDS: ZINC SULFATE 50 MG CAP PO SCH (16:13)
[2022-07-06] MEDS: DEXAMETHASONE SOD PHOS 10 MG/1 ML VIAL IV SCH (16:13)
[2022-07-06] MEDS: ASCORBIC ACID 500 MG TAB PO SCH (16:13)
[2022-07-06] MEDS: ENOXAPARIN 30 MG/0.3 ML SYR SC SCH (17:04)
[2022-07-07] VITALS (7 sets, daily range): BP systolic 138–157; BP diastolic 65–81
[2022-07-07] MEDS: SODIUM CHLORIDE 0.9% 1000ML 1,000 ML IV SCH ×3 (02:30→15:27)
[2022-07-07 05:49] LABS: BASOPHILS % 0.4 % (0.0-1.0); EOSINOPHILS % 0.2 % (0.0-6.0); HEMATOCRIT 35.4 % (34.2-44.1); HEMOGLOBIN 11.5 g/dL (12.0-16.0); LYMPHOCYTES # (AUTO) 0.9 (1.0-3.2); LYMPHOCYTES % 19.6 % (18.0-39.1); MEAN CORPUSCULAR HEMOGLOBIN 31.6 pg (28-32); MEAN CORPUSCULAR HGB CONC 32.5 g/dL (31-35); MEAN CORPUSCULAR VOLUME 97.3 fL (81-99); MONOCYTES # (AUTO) 0.1 (0.2-0.8); MONOCYTES % 2.6 % (4.4-11.3); NEUTROPHILS # (AUTO) 3.5 (2.1-6.9); NEUTROPHILS % 76.5 % (38.7-80.0); PLATELET COUNT 130 x10e3/uL (140-360); RED BLOOD COUNT 3.64 x10e6/uL (3.6-5.1); RED CELL DISTRIBUTION WIDTH 13.9 % (11.7-14.4)
[2022-07-07] MEDS: ACETAMINOPHEN 325 MG TAB PO PRN ×3 (06:13→15:28)
[2022-07-07] MEDS: ONDANSETRON HCL INJ 2MG/ML 2ML 2 MG/ML VIAL IV PRN ×4 (06:13→20:50)
[2022-07-07 06:30] LABS: ALBUMIN 3.1 g/dL (3.5-5.0); ALBUMIN/GLOBULIN RATIO 0.9 (0.8-2.0); ANION GAP 13.8 mmol/L (8-16); CALCIUM 8.9 mg/dL (8.4-10.2); CREATININE, SERUM 1.43 mg/dL (0.57-1.11); POTASSIUM 4.8 mmol/L (3.5-5.1)
[2022-07-07] MEDS: NON-FORMULARY MEDICATION (Budesonide/Glycopyr/Formoterol (Breztri Aerosphere Inhaler) 2 IN INH SCH (07:00)
[2022-07-07] MEDS: NON-FORMULARY MEDICATION (Folic Acid* 0.4 MG) PO SCH (08:23)
[2022-07-07] MEDS: DEXAMETHASONE SOD PHOS 10 MG/1 ML VIAL IV SCH (08:28)
[2022-07-07] MEDS: CEFTRIAXONE 2 GM in SODIUM CHLORIDE 0.9% 100 ML IV SCH (08:28)
[2022-07-07] MEDS: ASCORBIC ACID 500 MG TAB PO SCH ×2 (08:29→15:28)
[2022-07-07] MEDS: METOPROLOL SUCCINATE 50 MG TAB XL PO SCH (08:29)
[2022-07-07] MEDS: ENOXAPARIN 30 MG/0.3 ML SYR SC SCH ×2 (08:29→20:47)
[2022-07-07] MEDS: OYST-CAL-D 500MG TABLET PO SCH (08:29)
[2022-07-07] MEDS: ZINC SULFATE 50 MG CAP PO SCH (08:29)
[2022-07-07] MEDS: ALLOPURINOL 300 MG TAB PO SCH (08:30)
[2022-07-07] MEDS: LISINOPRIL 20 MG TAB PO SCH (08:30)
[2022-07-07] MEDS: CLOPIDOGREL BISULFATE 75 MG TAB PO SCH (08:30)
[2022-07-07] MEDS: MONTELUKAST SODIUM 10 MG TAB PO SCH (08:30)
[2022-07-07] MEDS: CITALOPRAM HYDROBROMIDE 20 MG TAB PO SCH (08:30)
[2022-07-07] MEDS: ANASTROZOLE 1 MG TAB PO SCH (08:31)
[2022-07-07] MEDS: INSULIN LISPRO 100 UNIT/1 ML 3ML VIAL SQ SCH ×4 (08:32→21:01)
[2022-07-07] MEDS: PANTOPRAZOLE SOD 40 MG TABEC PO SCH ×2 (08:43→15:28)
[2022-07-07] MEDS ORDERED: ACETAMIN/BUTALBITAL/CAFFEINE TAB PO PRN (19:00)
[2022-07-08] VITALS: BP 130/71
[2022-07-08] MEDS: SODIUM CHLORIDE 0.9% 1000ML 1,000 ML IV SCH (03:10)
[2022-07-08] MEDS: ACETAMINOPHEN 325 MG TAB PO PRN ×3 (03:10→17:08)
[2022-07-08 05:43] VITALS: BP 110/70
[2022-07-08 05:54] LABS: BASOPHILS % 0.3 % (0.0-1.0); EOSINOPHILS % 0.1 % (0.0-6.0); HEMATOCRIT 34.5 % (34.2-44.1); HEMOGLOBIN 11.2 g/dL (12.0-16.0); LYMPHOCYTES # (AUTO) 1.8 (1.0-3.2); LYMPHOCYTES % 24.7 % (18.0-39.1); MEAN CORPUSCULAR HEMOGLOBIN 31.8 pg (28-32); MEAN CORPUSCULAR HGB CONC 32.5 g/dL (31-35); MONOCYTES # (AUTO) 0.4 (0.2-0.8); MONOCYTES % 5.5 % (4.4-11.3); NEUTROPHILS # (AUTO) 5.1 (2.1-6.9); NEUTROPHILS % 68.9 % (38.7-80.0); PLATELET COUNT 147 x10e3/uL (140-360); RED BLOOD COUNT 3.52 x10e6/uL (3.6-5.1); RED CELL DISTRIBUTION WIDTH 14.6 % (11.7-14.4)
[2022-07-08 06:24] LABS: ANION GAP 12.3 mmol/L (8-16); CALCIUM 9.1 mg/dL (8.4-10.2); CREATININE, SERUM 1.33 mg/dL (0.57-1.11); POTASSIUM 4.3 mmol/L (3.5-5.1)
[2022-07-08] MEDS: NON-FORMULARY MEDICATION (Budesonide/Glycopyr/Formoterol (Breztri Aerosphere Inhaler) 2 IN INH SCH ×2 (07:00→19:00)
[2022-07-08] MEDS: MONTELUKAST SODIUM 10 MG TAB PO SCH (08:03)
[2022-07-08] MEDS: ZINC SULFATE 50 MG CAP PO SCH (08:03)
[2022-07-08] MEDS: OYST-CAL-D 500MG TABLET PO SCH (08:03)
[2022-07-08] MEDS: ALLOPURINOL 300 MG TAB PO SCH (08:04)
[2022-07-08] MEDS: CEFTRIAXONE 2 GM in SODIUM CHLORIDE 0.9% 100 ML IV SCH (08:04)
[2022-07-08] MEDS: DEXAMETHASONE SOD PHOS 10 MG/1 ML VIAL IV SCH (08:04)
[2022-07-08] MEDS: CLOPIDOGREL BISULFATE 75 MG TAB PO SCH (08:04)
[2022-07-08] MEDS: ANASTROZOLE 1 MG TAB PO SCH (08:04)
[2022-07-08] MEDS: PANTOPRAZOLE SOD 40 MG TABEC PO SCH ×2 (08:04→15:50)
[2022-07-08] MEDS: ASCORBIC ACID 500 MG TAB PO SCH ×2 (08:05→16:28)
[2022-07-08] MEDS: CITALOPRAM HYDROBROMIDE 20 MG TAB PO SCH (08:05)
[2022-07-08 08:20] VITALS: BP 151/70
[2022-07-08] MEDS: INSULIN LISPRO 100 UNIT/1 ML 3ML VIAL SQ SCH ×4 (08:25→21:34)
[2022-07-08 08:32] VITALS: BP 151/70
[2022-07-08] MEDS: METOPROLOL SUCCINATE 50 MG TAB XL PO SCH (08:34)
[2022-07-08] MEDS: LISINOPRIL 20 MG TAB PO SCH (08:34)
[2022-07-08] MEDS: ENOXAPARIN 30 MG/0.3 ML SYR SC SCH ×2 (08:35→21:31)
[2022-07-08] MEDS: NON-FORMULARY MEDICATION (Folic Acid* 0.4 MG) PO SCH (08:35)
[2022-07-08 11:39] VITALS: BP 152/71
[2022-07-08] MEDS: ONDANSETRON HCL INJ 2MG/ML 2ML 2 MG/ML VIAL IV PRN (16:56)
[2022-07-08 20:00] VITALS: BP 139/77
[2022-07-09] VITALS (7 sets, daily range): BP systolic 132–167; BP diastolic 58–99
[2022-07-09] MEDS: SODIUM CHLORIDE 0.9% 1000ML 1,000 ML IV SCH ×3 (05:50→20:23)
[2022-07-09] MEDS: NON-FORMULARY MEDICATION (Budesonide/Glycopyr/Formoterol (Breztri Aerosphere Inhaler) 2 IN INH SCH ×2 (07:00→19:00)
[2022-07-09 07:13] LABS: BASOPHILS % 0.5 % (0.0-1.0); EOSINOPHILS % 0.3 % (0.0-6.0); HEMATOCRIT 36.3 % (34.2-44.1); HEMOGLOBIN 11.5 g/dL (12.0-16.0); LYMPHOCYTES # (AUTO) 2.4 (1.0-3.2); LYMPHOCYTES % 29.9 % (18.0-39.1); MEAN CORPUSCULAR HEMOGLOBIN 31.3 pg (28-32); MEAN CORPUSCULAR HGB CONC 31.7 g/dL (31-35); MEAN CORPUSCULAR VOLUME 98.9 fL (81-99); MONOCYTES # (AUTO) 0.4 (0.2-0.8); NEUTROPHILS % 63.2 % (38.7-80.0); PLATELET COUNT 147 x10e3/uL (140-360); RED BLOOD COUNT 3.67 x10e6/uL (3.6-5.1); RED CELL DISTRIBUTION WIDTH 14.8 % (11.7-14.4)
[2022-07-09] MEDS: INSULIN LISPRO 100 UNIT/1 ML 3ML VIAL SQ SCH ×4 (07:30→21:10)
[2022-07-09 07:39] LABS: ALBUMIN 3.2 g/dL (3.5-5.0); ANION GAP 11.5 mmol/L (8-16); CALCIUM 9.2 mg/dL (8.4-10.2); CREATININE, SERUM 1.3 mg/dL (0.57-1.11); POTASSIUM 4.5 mmol/L (3.5-5.1)
[2022-07-09] MEDS: NON-FORMULARY MEDICATION (Folic Acid* 0.4 MG) PO SCH (08:16)
[2022-07-09] MEDS: DEXAMETHASONE SOD PHOS 10 MG/1 ML VIAL IV SCH (08:39)
[2022-07-09] MEDS: CEFTRIAXONE 2 GM in SODIUM CHLORIDE 0.9% 100 ML IV SCH (08:39)
[2022-07-09] MEDS: PANTOPRAZOLE SOD 40 MG TABEC PO SCH ×2 (08:39→16:50)
[2022-07-09] MEDS: CITALOPRAM HYDROBROMIDE 20 MG TAB PO SCH (08:40)
[2022-07-09] MEDS: ANASTROZOLE 1 MG TAB PO SCH (08:40)
[2022-07-09] MEDS: OYST-CAL-D 500MG TABLET PO SCH (08:41)
[2022-07-09] MEDS: MONTELUKAST SODIUM 10 MG TAB PO SCH (08:44)
[2022-07-09] MEDS: CLOPIDOGREL BISULFATE 75 MG TAB PO SCH (08:44)
[2022-07-09] MEDS: LISINOPRIL 20 MG TAB PO SCH (08:44)
[2022-07-09] MEDS: ENOXAPARIN 30 MG/0.3 ML SYR SC SCH ×2 (08:45→20:21)
[2022-07-09] MEDS: ALLOPURINOL 300 MG TAB PO SCH (08:45)
[2022-07-09] MEDS: ZINC SULFATE 50 MG CAP PO SCH (08:45)
[2022-07-09] MEDS: ASCORBIC ACID 500 MG TAB PO SCH ×2 (08:45→16:50)
[2022-07-09] MEDS: METOPROLOL SUCCINATE 50 MG TAB XL PO SCH (08:45)
[2022-07-10] VITALS (7 sets, daily range): BP systolic 128–174; BP diastolic 65–84
[2022-07-10 05:11] LABS: BASOPHILS % 0.3 % (0.0-1.0); EOSINOPHILS % 0.3 % (0.0-6.0); HEMATOCRIT 34.5 % (34.2-44.1); HEMOGLOBIN 10.9 g/dL (12.0-16.0); LYMPHOCYTES # (AUTO) 2.2 (1.0-3.2); LYMPHOCYTES % 33.9 % (18.0-39.1); MEAN CORPUSCULAR HEMOGLOBIN 31.2 pg (28-32); MEAN CORPUSCULAR HGB CONC 31.6 g/dL (31-35); MEAN CORPUSCULAR VOLUME 98.9 fL (81-99); MONOCYTES # (AUTO) 0.4 (0.2-0.8); MONOCYTES % 6.1 % (4.4-11.3); NEUTROPHILS # (AUTO) 3.8 (2.1-6.9); NEUTROPHILS % 58.6 % (38.7-80.0); PLATELET COUNT 128 x10e3/uL (140-360); RED BLOOD COUNT 3.49 x10e6/uL (3.6-5.1)
[2022-07-10 05:21] LABS: ALBUMIN 2.9 g/dL (3.5-5.0); ANION GAP 12.3 mmol/L (8-16); CALCIUM 8.7 mg/dL (8.4-10.2); CREATININE, SERUM 1.28 mg/dL (0.57-1.11); POTASSIUM 4.3 mmol/L (3.5-5.1)
[2022-07-10] MEDS: NON-FORMULARY MEDICATION (Budesonide/Glycopyr/Formoterol (Breztri Aerosphere Inhaler) 2 IN INH SCH ×2 (07:00→19:00)
[2022-07-10] MEDS: INSULIN LISPRO 100 UNIT/1 ML 3ML VIAL SQ SCH ×4 (07:30→21:26)
[2022-07-10] MEDS: PANTOPRAZOLE SOD 40 MG TABEC PO SCH ×2 (08:32→16:54)
[2022-07-10] MEDS: DEXAMETHASONE SOD PHOS 10 MG/1 ML VIAL IV SCH (08:33)
[2022-07-10] MEDS: CEFTRIAXONE 2 GM in SODIUM CHLORIDE 0.9% 100 ML IV SCH (08:33)
[2022-07-10] MEDS: OYST-CAL-D 500MG TABLET PO SCH (08:34)
[2022-07-10] MEDS: ANASTROZOLE 1 MG TAB PO SCH (08:34)
[2022-07-10] MEDS: CITALOPRAM HYDROBROMIDE 20 MG TAB PO SCH (08:34)
[2022-07-10] MEDS: CLOPIDOGREL BISULFATE 75 MG TAB PO SCH (08:34)
[2022-07-10] MEDS: MONTELUKAST SODIUM 10 MG TAB PO SCH (08:35)
[2022-07-10] MEDS: LISINOPRIL 20 MG TAB PO SCH (08:35)
[2022-07-10] MEDS: ZINC SULFATE 50 MG CAP PO SCH (08:35)
[2022-07-10] MEDS: ALLOPURINOL 300 MG TAB PO SCH (08:35)
[2022-07-10] MEDS: ASCORBIC ACID 500 MG TAB PO SCH ×2 (08:35→16:54)
[2022-07-10] MEDS: ENOXAPARIN 30 MG/0.3 ML SYR SC SCH ×2 (08:36→21:18)
[2022-07-10] MEDS: ACETAMINOPHEN 325 MG TAB PO PRN ×2 (08:37→16:48)
[2022-07-10] MEDS: ONDANSETRON HCL INJ 2MG/ML 2ML 2 MG/ML VIAL IV PRN ×2 (08:38→16:48)
[2022-07-10] MEDS: METOPROLOL SUCCINATE 50 MG TAB XL PO SCH (08:38)
[2022-07-10] MEDS: NON-FORMULARY MEDICATION (Folic Acid* 0.4 MG) PO SCH (09:00)
[2022-07-10] MEDS: AZITHROMYCIN 250 MG TAB PO SCH (16:54)
[2022-07-10] MEDS: SODIUM CHLORIDE 0.9% 1000ML 1,000 ML IV SCH ×2 (17:12→21:18)
[2022-07-11] VITALS: BP 174/76
[2022-07-11] MEDS: ONDANSETRON HCL INJ 2MG/ML 2ML 2 MG/ML VIAL IV PRN ×2 (00:56→08:30)
[2022-07-11] MEDS: ACETAMINOPHEN 325 MG TAB PO PRN ×2 (00:57→08:26)
[2022-07-11 04:00] VITALS: BP 172/76
[2022-07-11 04:45] LABS: BASOPHILS % 0.4 % (0.0-1.0); EOSINOPHILS % 0.5 % (0.0-6.0); HEMATOCRIT 35.7 % (34.2-44.1); HEMOGLOBIN 11.4 g/dL (12.0-16.0); LYMPHOCYTES # (AUTO) 1.8 (1.0-3.2); LYMPHOCYTES % 32.4 % (18.0-39.1); MEAN CORPUSCULAR HEMOGLOBIN 31.8 pg (28-32); MEAN CORPUSCULAR HGB CONC 31.9 g/dL (31-35); MEAN CORPUSCULAR VOLUME 99.7 fL (81-99); MONOCYTES # (AUTO) 0.3 (0.2-0.8); MONOCYTES % 5.4 % (4.4-11.3); NEUTROPHILS # (AUTO) 3.4 (2.1-6.9); NEUTROPHILS % 60.4 % (38.7-80.0); PLATELET COUNT 136 x10e3/uL (140-360); RED BLOOD COUNT 3.58 x10e6/uL (3.6-5.1); RED CELL DISTRIBUTION WIDTH 14.8 % (11.7-14.4)
[2022-07-11 05:01] LABS: ANION GAP 14.4 mmol/L (8-16); CALCIUM 8.8 mg/dL (8.4-10.2); CREATININE, SERUM 1.03 mg/dL (0.57-1.11); POTASSIUM 4.4 mmol/L (3.5-5.1)
[2022-07-11] MEDS: NON-FORMULARY MEDICATION (Budesonide/Glycopyr/Formoterol (Breztri Aerosphere Inhaler) 2 IN INH SCH (07:00)
[2022-07-11] MEDS: INSULIN LISPRO 100 UNIT/1 ML 3ML VIAL SQ SCH (07:30)
[2022-07-11 08:18] VITALS: BP 170/90
[2022-07-11] MEDS: PANTOPRAZOLE SOD 40 MG TABEC PO SCH (08:24)
[2022-07-11] MEDS: AZITHROMYCIN 250 MG TAB PO SCH (08:25)
[2022-07-11] MEDS: ZINC SULFATE 50 MG CAP PO SCH (08:25)
[2022-07-11] MEDS: DEXAMETHASONE SOD PHOS 10 MG/1 ML VIAL IV SCH (08:25)
[2022-07-11] MEDS: ASCORBIC ACID 500 MG TAB PO SCH (08:26)
[2022-07-11] MEDS: CITALOPRAM HYDROBROMIDE 20 MG TAB PO SCH (08:26)
[2022-07-11] MEDS: OYST-CAL-D 500MG TABLET PO SCH (08:27)
[2022-07-11] MEDS: CLOPIDOGREL BISULFATE 75 MG TAB PO SCH (08:28)
[2022-07-11] MEDS: NON-FORMULARY MEDICATION (Folic Acid* 0.4 MG) PO SCH (08:29)
[2022-07-11] MEDS: ANASTROZOLE 1 MG TAB PO SCH (08:29)
[2022-07-11] MEDS: METOPROLOL SUCCINATE 50 MG TAB XL PO SCH (08:29)
[2022-07-11] MEDS: ALLOPURINOL 300 MG TAB PO SCH (08:29)
[2022-07-11] MEDS: MONTELUKAST SODIUM 10 MG TAB PO SCH (08:29)
[2022-07-11] MEDS: LISINOPRIL 20 MG TAB PO SCH (08:30)
[2022-07-11] MEDS: ENOXAPARIN 30 MG/0.3 ML SYR SC SCH (08:30)
[2022-07-11] MEDS: CEFTRIAXONE 2 GM in SODIUM CHLORIDE 0.9% 100 ML IV SCH (08:31)
[2022-07-11] MEDS ORDERED: DEXAMETHASONE6 MG PO (10:29)
== END 2022-07-11 10:54 | disposition home health service (06) | DRG 682 ==
LOC: ER 16:19 → ERHOLD 18:10 → MED/SURG3 20:20
PROVIDERS: ADMIT Family Medicine; ATTEND Family Medicine
PROC: 8E0ZXY6 Isolation (ICD-10-PCS; principal; 2022-07-05)
DX: N17.9 Acute kidney failure, unspecified (principal); U07.1 COVID-19; J44.1 Chronic obstructive pulmonary disease with (acute) exacerbation; I10 Essential (primary) hypertension; E11.9 Type 2 diabetes mellitus without complications; I25.10 Atherosclerotic heart disease of native coronary artery without angina pectoris; K21.9 Gastro-esophageal reflux disease without esophagitis; E78.5 Hyperlipidemia, unspecified; M54.9 Dorsalgia, unspecified; G89.29 Other chronic pain; E66.01 Morbid (severe) obesity due to excess calories; M06.9 Rheumatoid arthritis, unspecified; M19.90 Unspecified osteoarthritis, unspecified site; Z90.49 Acquired absence of other specified parts of digestive tract; Z95.5 Presence of coronary angioplasty implant and graft; Z59.6 Low income; Z85.3 Personal history of malignant neoplasm of breast; Z79.84 Long term (current) use of oral hypoglycemic drugs
CPT/HCPCS: 36415; 71045; 71046; 80048; 80053; 81001; 82550; 82553; 82948; 83690; 83880; 84484; 85025; 93005; 94799; 96361; 96372; 99252; 99284; J0456; J0696; J1100; J1650; J2405; J7030; J7050

== ENCOUNTER 2024-02-01 20:44 | Emergency (ER) | payer MEDICARE, OTHER ==
[~2024-02-01] VITALS: Ht 157.5 cm; Wt 81.2 kg
[~2024-02-01 20:44] MED LIST changes: +DEXAMETHASONE6 MG PO; +LIDOCAINE1 EACH EXT
[2024-02-01 21:58] LABS: BASOPHILS % 0.3 % (0.0-1.0); EOSINOPHILS # (AUTO) 0.1 (0.0-0.4); HEMATOCRIT 40.6 % (34.2-44.1); LYMPHOCYTES % 17.5 % (18.0-39.1); MEAN CORPUSCULAR HEMOGLOBIN 31.8 pg (28-32); MEAN CORPUSCULAR VOLUME 99.3 fL (81-99); MONOCYTES # (AUTO) 0.5 (0.2-0.8); MONOCYTES % 8.8 % (4.4-11.3); NEUTROPHILS # (AUTO) 4.2 (2.1-6.9); NEUTROPHILS % 71.9 % (38.7-80.0); PLATELET COUNT 141 x10e3/uL (140-360); RED BLOOD COUNT 4.09 x10e6/uL (3.6-5.1); RED CELL DISTRIBUTION WIDTH 13.4 % (11.7-14.4)
[2024-02-01] MEDS: SODIUM CHLORIDE 0.9% 1000ML 1,000 ML IV STA (22:04)
[2024-02-01] MEDS: DIPHENHYDRAMINE HCL INJ 50 MG/ML VIAL IV STA (22:05)
[2024-02-01] MEDS: METOCLOPRAMIDE HCL 10 MG/2ML VIAL IV STA (22:05)
[2024-02-01] MEDS: METHYLPREDNISOLONE SOD SUCC 125 MG/2ML VIAL IV STA (22:05)
[2024-02-01] MEDS: KETOROLAC TROMETHAMINE 30 MG/ML VIAL IV STA (22:06)
[2024-02-01 22:35] LABS: CREATININE, SERUM 1.2 mg/dL (0.6-1.2)
[2024-02-01 22:36] LABS: BILIRUBIN,TOTAL 1.2 mg/dL (0.2-1.6); CALCIUM 9.2 mg/dL (8.0-10.3)
[2024-02-01 22:37] LABS: ALBUMIN 3.5 g/dL (3.3-5.5); ALBUMIN/GLOBULIN RATIO 1.1 (0.8-2.0); TOTAL PROTEIN 6.8 g/dL (6.4-8.1)
[2024-02-01] MEDS ORDERED: FIORICET 50-301 EACH PO (23:53)
[2024-02-01] MEDS ORDERED: ONDANSETRON ODT4 MG PO (23:53)
[2024-02-02] VITALS: PULSE 73; RESP 15; TEMP 98.7; O2SAT 97
== END 2024-02-02 00:10 | disposition home or self-care (01) ==
LOC: ER 20:50
DX: R51.9 Headache, unspecified (principal); R11.2 Nausea with vomiting, unspecified; I10 Essential (primary) hypertension; E11.65 Type 2 diabetes mellitus with hyperglycemia; J44.9 Chronic obstructive pulmonary disease, unspecified; I25.10 Atherosclerotic heart disease of native coronary artery without angina pectoris; J45.909 Unspecified asthma, uncomplicated; E78.5 Hyperlipidemia, unspecified; K21.9 Gastro-esophageal reflux disease without esophagitis; M54.9 Dorsalgia, unspecified; G89.29 Other chronic pain; Z11.52 Encounter for screening for COVID-19; Z85.3 Personal history of malignant neoplasm of breast; Z95.5 Presence of coronary angioplasty implant and graft
CPT/HCPCS: 36415; 70450; 80053; 85025; 87400; 99284; J1200; J1885; J2765; J2919; J7030; U0002

== ENCOUNTER 2024-09-07 18:13 | Emergency (ER) | payer MEDICARE, OTHER ==
[~2024-09-07] VITALS: Ht 160 cm; Wt 64.0 kg
[~2024-09-07 18:13] MED LIST changes: +FIORICET 50-301 EACH PO; +ONDANSETRON ODT4 MG PO
[2024-09-07 18:36] VITALS: PULSE 67; RESP 17; TEMP 98.9
[2024-09-07 20:12] VITALS: BP 159/73; PULSE 89; RESP 18; TEMP 98; O2SAT 97
== END 2024-09-07 20:12 | disposition home or self-care (01) ==
LOC: FSED 18:34
DX: S92.411A Displaced fracture of proximal phalanx of right great toe, initial encounter for closed fracture (principal); S00.83XA Contusion of other part of head, initial encounter; W06.XXXA Fall from bed, initial encounter; Y92.89 Other specified places as the place of occurrence of the external cause; I10 Essential (primary) hypertension; E11.9 Type 2 diabetes mellitus without complications; J44.9 Chronic obstructive pulmonary disease, unspecified; I25.10 Atherosclerotic heart disease of native coronary artery without angina pectoris; E78.5 Hyperlipidemia, unspecified; J45.909 Unspecified asthma, uncomplicated; K21.9 Gastro-esophageal reflux disease without esophagitis; Z98.84 Bariatric surgery status; Z85.3 Personal history of malignant neoplasm of breast; Z95.5 Presence of coronary angioplasty implant and graft
CPT/HCPCS: 70450; 99283

== ENCOUNTER 2024-11-27 07:53 | Observation (INO) | payer MEDICARE, OTHER ==
[2024-11-27] VITALS (7 sets, daily range): BP systolic 135–150; BP diastolic 54–73; PULSE 61–66; RESP 15–18; TEMP 97.2–98.1; O2SAT 97–100
[~2024-11-27] VITALS: Ht 162.6 cm; Wt 61.2 kg
[2024-11-27] MEDS ORDERED: FAMOTIDINE 20 MG/2 ML VIAL IV ONE ×2 (08:06→08:12)
[2024-11-27] MEDS ORDERED: DIPHENHYDRAMINE HCL INJ 50 MG/ML VIAL ONE (08:06)
[2024-11-27] MEDS ORDERED: METHYLPREDNISOLONE SOD SUCC 125 MG/2ML VIAL ONE (08:06)
[2024-11-27] MEDS ORDERED: SODIUM CHLORIDE 0.9% 1000ML 1,000 ML ONE (08:12)
[2024-11-27] MEDS: DIPHENHYDRAMINE HCL INJ 50 MG/ML VIAL IV ONE (08:19)
[2024-11-27] MEDS: METHYLPREDNISOLONE SOD SUCC 125 MG/2ML VIAL IV ONE (08:20)
[2024-11-27] MEDS: FAMOTIDINE 20 MG/2 ML VIAL IV STA (08:20)
[2024-11-27] MEDS: SODIUM CHLORIDE 0.9% 1000ML 1,000 ML IV ONE (08:20)
[2024-11-27 09:15] LABS: BASOPHILS % 0.9 % (0.0-1.0); EOSINOPHILS % 6.5 % (0.0-6.0); LYMPHOCYTES % 36.0 % (18.0-39.1); MONOCYTES % 6.9 % (4.4-11.3); NEUTROPHILS % 49.3 % (38.7-80.0); RED CELL DISTRIBUTION WIDTH 15.8 % (11.7-14.4)
[2024-11-27 09:26] LABS: EST GLOMERULAR FILTRATION RATE 47.0 ML/MIN (>=60)
[2024-11-27] MEDS ORDERED: ONDANSETRON HCL INJ 2MG/ML 2ML 2 MG/ML VIAL IV PRN (09:45)
[2024-11-27] MEDS: MUPIROCIN 2% OINT 22 GM TUBE TOP SCH (09:45)
[2024-11-27] MEDS: SODIUM CHLORIDE 0.9% 1000ML 1,000 ML IV SCH (12:50)
[2024-11-27] MEDS ORDERED: BENZONATATE200 MG PO (14:14)
[2024-11-27] MEDS ORDERED: TREXALL10 MG PO (14:14)
[2024-11-27] MEDS ORDERED: FUROSEMIDE40 MG PO (14:14)
[2024-11-27] MEDS ORDERED: CARVEDILOL25 MG PO (14:14)
[2024-11-27] MEDS ORDERED: PANTOPRAZOLE SOD 40 MG TABEC PO SCH (18:15)
[2024-11-27] MEDS ORDERED: DIPHENHYDRAMINE HCL INJ 50 MG/ML VIAL IV PRN (18:15)
[2024-11-27] MEDS ORDERED: BENZONATATE 100 MG CAP PO PRN (18:15)
[2024-11-27] MEDS ORDERED: FUROSEMIDE 40 MG TAB PO PRN (18:15)
[2024-11-28 00:30] VITALS: BP 149/73; PULSE 62; RESP 15; TEMP 98; O2SAT 100
[2024-11-28] MEDS: HYDRALAZINE HCL 20 MG/ML VIAL IV PRN (05:37)
[2024-11-28 05:43] VITALS: BP 183/84; PULSE 65; RESP 16; TEMP 98.3; O2SAT 100
[2024-11-28 05:59] LABS: EST GLOMERULAR FILTRATION RATE 57.0 ML/MIN (>=60)
[2024-11-28 06:19] LABS: BASOPHILS % 0.8 % (0.0-1.0); EOSINOPHILS % 0.8 % (0.0-6.0); LYMPHOCYTES % 27.0 % (18.0-39.1); MONOCYTES % 5.9 % (4.4-11.3); NEUTROPHILS % 65.3 % (38.7-80.0); RED CELL DISTRIBUTION WIDTH 15.5 % (11.7-14.4)
[2024-11-28 08:30] VITALS: BP 131/62; PULSE 63; RESP 15; TEMP 98.2; O2SAT 100; O2SAT 98
[2024-11-28 09:00] VITALS: BP 131/62; PULSE 63; RESP 15; TEMP 98.2; O2SAT 98
[2024-11-28] MEDS: FAMOTIDINE 20 MG TAB PO SCH (09:20)
[2024-11-28] MEDS: CITALOPRAM HYDROBROMIDE 20 MG TAB PO SCH (09:20)
[2024-11-28] MEDS: CLOPIDOGREL BISULFATE 75 MG TAB PO SCH (09:21)
[2024-11-28] MEDS: CYANOCOBALAMIN 1,000 MCG TAB PO SCH (09:21)
[2024-11-28] MEDS: CALCIUM CARBONATE/VITAMIN D3 500 MG TAB PO SCH (09:21)
[2024-11-28] MEDS: LORATADINE 10 MG TAB PO SCH (09:21)
[2024-11-28] MEDS: ALLOPURINOL 300 MG TAB PO SCH (09:21)
[2024-11-28] MEDS ORDERED: ACETAMIN/BUTALBITAL/CAFFEINE TAB PO PRN (09:45)
[2024-11-28] MEDS: ACETAMINOPHEN 325 MG TAB PO PRN (10:15)
[2024-11-28] MEDS: OMEGA 3 POLYUNSAT FATTY ACIDS 1000 MG SOFTGEL PO SCH (11:03)
[2024-11-28] MEDS: LIDOCAINE 4% PATCH TP SCH (11:03)
[2024-11-28] MEDS ORDERED: ACETAMINOPHEN325 M1 PO (14:52)
[2024-11-28] MEDS ORDERED: LORATADINE10 MG PO (14:52)
[2024-11-28] MEDS ORDERED: MUPIROCIN22 GM TOP (14:52)
[2024-11-28] MEDS ORDERED: BENADRYL25 M1 PO (15:04)
[2024-11-28] MEDS ORDERED: AMLODIPINE BESYL5 MG PO (15:04)
[2024-11-28] MEDS ORDERED: EPINEPHRIN0.3 MG/0.3 INJ (15:04)
== END 2024-11-28 16:00 | disposition home or self-care (01) ==
LOC: ER 08:05 → INTOOBSV 09:48 → ERHOLD 09:48 → IMCU 13:20
PROVIDERS: ADMIT Internal Medicine; ATTEND Internal Medicine
DX: T78.3XXA Angioneurotic edema, initial encounter (principal); T46.4X5A Adverse effect of angiotensin-converting-enzyme inhibitors, initial encounter; I11.9 Hypertensive heart disease without heart failure; I25.10 Atherosclerotic heart disease of native coronary artery without angina pectoris; Z95.5 Presence of coronary angioplasty implant and graft; E11.9 Type 2 diabetes mellitus without complications; Z79.4 Long term (current) use of insulin; Z79.84 Long term (current) use of oral hypoglycemic drugs; Z79.85 Long-term (current) use of injectable non-insulin antidiabetic drugs; J44.89 Other specified chronic obstructive pulmonary disease; Z85.3 Personal history of malignant neoplasm of breast; E78.5 Hyperlipidemia, unspecified; M19.90 Unspecified osteoarthritis, unspecified site; Z87.891 Personal history of nicotine dependence; Z86.73 Personal history of transient ischemic attack (TIA), and cerebral infarction without residual deficits; Z88.6 Allergy status to analgesic agent; Z91.09 Other allergy status, other than to drugs and biological substances; Y92.019 Unspecified place in single-family (private) house as the place of occurrence of the external cause
CPT/HCPCS: 36415 ×2; 80053 ×2; 85025 ×2; 99252; 99284; G0378 ×2; J0360; J1200; J1308; J2919; J7030